=== PATIENT | female | born 1960 | race Caucasian/White ===

== ENCOUNTER 2020-11-13 14:21 | Inpatient (IN) | payer OTHER, SELFPAY ==
[~2020-11-13] VITALS: Ht 165.1 cm; Wt 82.8 kg
[2020-11-13 15:34] VITALS: Ht 165.1 cm; Wt 82.8 kg
--- NOTE | 2020-11-13 15:38 | NUR ---
PT BIB [facility] TO ED WITH C/O COCCYX PAIN FOR 3 DAYS. PER MEDICS, PT WAS POSITIVE ORTHOSTATIC ON SEEN. PT WAS SEEN WAITING IN ER HALLWAY ,THEN BEGAN VOMITING ON THE FLOOR. PT A&XO4,WHEELCHAIRED TO TENT FOR POSSIBLE COVID. PER MEDICS, PT WAS POSITIVE COVID EARLIER THIS MONTH.
--- NOTE | 2020-11-13 17:32 | NUR ---
MD PISANO AT CHAIRSIDE
--- NOTE | 2020-11-13 17:50 | NUR ---
LAB AT CHAIRSIDE
[2020-11-13 18:37] LABS: RED CELL DISTRIBUTION WIDTH 12.5 % (12.3-17.7)
--- NOTE | 2020-11-13 18:54 | NUR ---
PT WITH TECH FOR EKG, NO SOB,NO DISTRESS
[2020-11-13 18:57] LABS: PLATELET COUNT 431 x10^3mcL (179-408)
[2020-11-13 19:06] LABS: BAND NEUTROPHIL 2 % (0-10); BASOPHIL 0 % (0-2); MONOCYTE 8 % (0-7); SEGMENTED NEUTROPHILS 87 % (37-75)
[2020-11-13 19:07] LABS: rbc morphology (normal/abnorm) NORMAL (NORMAL)
--- NOTE | 2020-11-13 19:52 | NUR ---
FIRST ENCOUNTER WITH PATIENT. PRESENTED TO ED WITH C/C OF DIZZINESS AND COCCYX PAIN 10/. PT REPORTS SHE STARTED FEELING SWELLING AND PAIN IN COCCYX X3DAYS AGO BUT DID NOT PHYSICALLY SEE THE ABSCESS UNTIL TODAY. PT IS A&OX4 WITH E/U BREATHS. PT NOTED WITH LARGE ABSCESS WITH ESCHAR TISSUE ON LEFT INNER BUTTOCKS.
[2020-11-13 20:03] LABS: T3 TOTAL 0.5 ng/mL
[2020-11-13 20:11] LABS: FREE T4 1.47 ng/dL (0.76-1.46); FREE THYROXINE INDEX 3.2 ug/dL (1.4-4.5); T4(THYROXINE) 8.3 ug/dL (4.7-13.3)
[2020-11-13 20:23] LABS: ALKALINE PHOSPHATASE 129 U/L (46-116); ALT/SGPT 11 U/L (14-59); AST/SGOT 16 U/L (15-37); BILIRUBIN TOTAL 0.6 mg/dL (0.20-1.00); CALCIUM 9.6 mg/dL (8.5-10.1); CARBON DIOXIDE 14.9 mmol/L (21-32); CHLORIDE SERUM 95 mmol/L (98-107); CREATININE SERUM 0.8 mg/dL (0.6-1.0); GFR1 > 60 mL/min; GLUCOSE SERUM 339 mg/dL (74-106); SODIUM SERUM 135 mmol/L (136-145); TOTAL PROTEIN, SERUM 7.6 g/dL (6.4-8.2)
[2020-11-13 20:31] LABS: ALBUMIN 2.5 g/dL (3.4-5.0); POTASSIUM SERUM 2.7 mmol/L (3.5-5.1)
--- NOTE | 2020-11-13 21:43 | NUR ---
PT A&OX4, MEDICATED WITH 2ND ABX. PT TOLERATING WELL. PT REQUESTED ICE CHIPS AND STATED SHE FEELS NAUSEA. WILL NOTIFY .
--- NOTE | 2020-11-13 21:57 | NUR ---
PT STATES SHE IS UNABLE TO PROVIDE URINE SAMPLE AT THIS TIME. WILL CONTINUE TO ENCOURAGE PATIENT TO PROVIDE URINE SAMPLE.
[2020-11-13 22:21] LABS: CK-MB 1.3 ng/mL (0-3.6)
--- NOTE | 2020-11-13 22:52 | NUR ---
PT A&OX4 WITH E/U BREATHS, NO ACD NOTED. PT REPORTS [address] PISANO AWARE. AWAITING ORDERS.
--- NOTE | 2020-11-13 23:13 | NUR ---
PT REPORTS UNABLE TO PROVIDE URINE SAMPLE AT THIS TIME. WILL CONTINUE TO ENCOURAGE PATIENT TO ATTEMPT TO GIVE SAMPLE. MEDICATED PT PER MD ORDER WITH MORPHINE FOR 10/10 PAIN. PT'S ABX STILL RUNNING. ONCE COMPLETE WILL ADMINISTER POTASSIUM VIA IV, SEE EMAR FOR ORDER PENDING.
--- NOTE | 2020-11-14 01:30 | NUR ---
PROVIDED PT WITH ICE CHIPS PER RESIDENT'S REQUEST. ADVISED PT SHE IS NPO BUT COULD HAVE ICE CHIPS PER RESIDENT'S APPROVAL.
[2020-11-14] MEDS ORDERED: FORTAMET500 M1 (02:30)
--- NOTE | 2020-11-14 03:00 | NUR ---
PT A&OX4 WITH E/U BREATHS, PT REPORTS PAIN IS BETTER. PT RESTING IN HIGH FOWLERS POC.
[2020-11-14 03:14] LABS: MAGNESIUM 2.1 mg/dL (1.8-2.4); PHOSPHOROUS 2.9 mg/dL (2.5-4.9)
[2020-11-14 03:15] LABS: CHOLESTEROL/HDL RATIO 9.1
--- NOTE | 2020-11-14 04:13 | NUR ---
PT A&OX4 WITH E/U BREATHS, NO ACD NOTED. PT PROVIDED BEDSIDE COMMODE.
--- NOTE | 2020-11-14 05:33 | NUR ---
PT A&OX4 WITH E/U BREATHS, NO ACD NOTED. REPORT GIVEN TO COMFORT BUSCH IN OR.
[2020-11-14 07:05] LABS: UA SPECIFIC GRAVITY 1.015 (1.005-1.035); microscopic required? YES; urine erythrocyte 3+ (NEGATIVE)
--- NOTE | 2020-11-14 10:35 | NUR ---
ARRIVED VIA GURNEY FROM OR AT 0855. TELE # 67 SR. IV SITE RIGHT HAND PATENT, CDI. COOPERATIVE. DRESSING TO BUTTOCKS CDI. INSERTED [address] JEFFREY ORDER. LUNGS CTA. BS'S ACTIVE TIMES 4. PERIPHERAL PULSES PALPABLE. NO EDEMA. AAO TIMES 4. NO SOB. VS'S STABLE.
[2020-11-14 10:46] VITALS: BP 108/63
[2020-11-14 11:56] LABS: BASOPHIL % 0.2 % (0.2-1.3); PLATELET COUNT 343 x10^3mcL (179-408); RED CELL DISTRIBUTION WIDTH 12.7 % (12.3-17.7)
[2020-11-14 12:06] VITALS: BP 98/54
[2020-11-14 12:09] LABS: ALKALINE PHOSPHATASE 117 U/L (46-116); ALT/SGPT 14 U/L (14-59); AST/SGOT 19 U/L (15-37); BILIRUBIN TOTAL 0.4 mg/dL (0.20-1.00); CALCIUM 8.1 mg/dL (8.5-10.1); CARBON DIOXIDE 16.7 mmol/L (21-32); CHLORIDE SERUM 102 mmol/L (98-107); CREATININE SERUM 0.7 mg/dL (0.6-1.0); GFR1 > 60 mL/min; GLUCOSE SERUM 309 mg/dL (74-106); SODIUM SERUM 140 mmol/L (136-145)
[2020-11-14 12:23] LABS: POTASSIUM SERUM 2.5 mmol/L (3.5-5.1); TOTAL PROTEIN, SERUM 5.5 g/dL (6.4-8.2)
[2020-11-14 17:23] VITALS: BP 93/60
--- NOTE | 2020-11-14 17:56 | NUR ---
AAO TIMES 4. TELE # 67 SR. VS'S STABLE. IV SITE RIGHT HAND PATENT, CDI. NO C/O PAIN. COOPERATIVE. O2 2L NC. NO SOB. RUTH CATH DRAINED 1100 ML RENATA URINE TO BSD. DRESSING TO NARAYAN AREA CDI. [facility]OUND CARE NURSE WAS NOTIFIED OF CONSULT.
--- NOTE | 2020-11-14 20:00 | NUR ---
PATIENT AWAKE, ALERT, ORIENTED X4. AMERICAN SPEAKING. RESPIRATION EVEN AND UNLABORED, ON O2 2L PER NASAL CANNULA. IV SITE TO R WRIST AND L ANTECUBITAL AREA PATENT AND INTACT. COMPLAINED OF NAUSEA. POOR APPETITE. LBM 12/9. RUTH CATHETER TO GRAVITY DRAINING YELLOW COLORED URINE. GENERALIZED WEAKNESS, NEEDS ASSISTANCE WITH ADL'S. WOUND TO L PERINEAL/LABIA/GLUTEAL AREA COVERED WITH DRY AND INTACT DRESSING. ON TELE #67. PLACED CALL LIGHT WITHIN REACH. WILL CONTINUE TO MONITOR.
--- NOTE | 2020-11-14 21:28 | NUR ---
PATIENT COMPLAINED OF PAIN THE R HIP, 08/03. MEDICATED WITH TORADOL 30 MG IVP ORDERED. WILL REASSESS PATIENT.
[2020-11-14 21:51] VITALS: BP 97/62
--- NOTE | 2020-11-15 03:49 | NUR ---
PATIENT COMPLAINED OF NAUSEA, MEDICATED WITH ZOFRAN 4 MG IVP ORDERED. WILL REASSESS PATIENT.
--- NOTE | 2020-11-15 04:05 | NUR ---
PATIENT COMPLAINED OF PAIN ON THE R HIP, MEDICATED IWTH TORADOL 30 MG IVP ORDERED. WILL REASSESS PATIENT.
[2020-11-15 06:18] VITALS: BP 132/79
--- NOTE | 2020-11-15 06:30 | NUR ---
PATIENT RESTING IN BED, RESPIRATION EVEN AND UNLABORED, ON O2 4L PER NASAL CANNULA. NEW IV SITE ON THE R FOREARM PATENT AND INTACT. RUTH CATHETER PATENT AND INTACT. DRESSING TO R HIP WOUND DRY AND INTACT. ASSISTED WITH NEEDS. SAFETY OBSERVED. PLACED BED IN THE LOWEST POSITION. PLACED CALL LIGHT WITHIN REACH AT ALL TIMES.
[2020-11-15 08:02] LABS: PLATELET COUNT 329 x10^3mcL (179-408); RED CELL DISTRIBUTION WIDTH 12.7 % (12.3-17.7)
--- NOTE | 2020-11-15 08:41 | NUR ---
AAO TIMES 4. TELE # 67 SR. LUNGS CTA BUL, DIMINISHED BASES. O2 SAT ON RA 98%. BS'S ACTIVE TIMES 4. ALANIS WITH GENERALIZED WEAKNESS. IV SITE LFA CDI. COOPERATIVE. NO C/O PAIN. C/O NAUSEA, STATES THE MEDICATION FOR N/V DOESNT WORK. I WILL PERSUE AND A DIFFERENT N/V MEDICINE? PERIPHERAL PULSES PALPABLE, NO EDEMA.
[2020-11-15 08:50] VITALS: BP 110/60
[2020-11-15 09:15] LABS: CALCIUM 8.7 mg/dL (8.5-10.1); CARBON DIOXIDE 23.5 mmol/L (21-32); CHLORIDE SERUM 103 mmol/L (98-107); CREATININE SERUM 0.9 mg/dL (0.6-1.0); GFR1 > 60 mL/min; GLUCOSE SERUM 180 mg/dL (74-106); MAGNESIUM 1.7 mg/dL (1.8-2.4); PHOSPHOROUS 1.4 mg/dL (2.5-4.9); SODIUM SERUM 139 mmol/L (136-145)
[2020-11-15 09:41] LABS: SEGMENTED NEUTROPHILS 90 % (37-75)
[2020-11-15 09:42] LABS: MONOCYTE 6 % (0-7); rbc morphology (normal/abnorm) NORMAL (NORMAL)
[2020-11-15 09:54] LABS: POTASSIUM SERUM 2.6 mmol/L (3.5-5.1)
--- NOTE | 2020-11-15 10:30 | NUR ---
PATIENT STATES SHE HAS BEEN N/V ALL NIGHT AND THIS AM, AND THAT THE MEDICINE WE GIVE HER DOESNT WORK. I CALLED DR PETER AND SHE ORDERED PHENERGAN, I GAVE PHENERGAN 12.5 DILUTED IN 10M CC NS AT 1045. SHE HAS STOPPED VOMITING AND IS NOW SLEEPING, BUT AROUSABLE.
[2020-11-15 12:39] VITALS: BP 125/67
[2020-11-15 14:51] LABS: CALCIUM 8.5 mg/dL (8.5-10.1); CARBON DIOXIDE 23.6 mmol/L (21-32); CREATININE SERUM 1.5 mg/dL (0.6-1.0); POTASSIUM SERUM 3.1 mmol/L (3.5-5.1)
--- NOTE | 2020-11-15 16:02 | NUR ---
REMOVED ABD PAD FROM BUTTOCKS, I LEFT PACKING IN THE LEFT BUTTOCK SURGICAL WOUND, I APPLIED NEW ABD PAD TO HER BUTTOCKS WITH ADHESIVE ISLAND DRESSING BORDER.
[2020-11-15 17:42] VITALS: BP 117/62
--- NOTE | 2020-11-15 18:00 | NUR ---
VANCO TROUGH WAS 16.1. I NOTIFIED PHARMACY THIS IS HIGH. I DID NOT GIVE A DOSE TODAY BECAUSE THE PRIORITY WENT TO THE K RIDER WITH A SERUM POTASSIUM LEVEL OF 2.6, AND THE VARIOUS OTHER ANTIBITIOICS. THE PHARMACIST WAS NOTIFED AND SHE SAID SHE WOULD RESCHEDULE IT AND POSSIBLY CHANGE THE DOSE.
--- NOTE | 2020-11-15 18:50 | NUR ---
AAO TIMES 4. TELE # 67 SR. VS'S STABLE. DRESSING TO BUTTOCK CDI. NO C/O PAIN. RUTH CATH DRAINING RENATA URINE TO BSD. IV SITE LFA CDI. COOPERATIVE.
--- NOTE | 2020-11-15 19:11 | NUR ---
I NOTIFIED DR ORDONEZ SAYED THAT PATIENT'S URINE OUTPUT IS 250 TODAY, YESTERDAY IT WAS AROUND 1200. I ALSO TOLD HIM ABOUT THE VANCO TROUGH OF 16.1, THAT THE VANCO WAS HELD DUE TO K RIDER INFUSING AND I NOTIFIED PHARMACIST. THE PHARMACIST STATES SHE WILL REDUCE THE NEXT DOSE AND FOR ME TO SKIP THE DOSE DUE AT 1130. DR ORDONEZ SAYED SAID TO HAVE HER BLADDER SCANNED. I WILL NOTIFY [employer] ROBOTICIST NURSE EDITH.
[2020-11-15 21:22] VITALS: BP 129/80
--- NOTE | 2020-11-16 00:31 | NUR ---
RECEIVED PATIENT IN BED. AWAKE,ALERT, AND ORIENTED.SKIN WARM AND DRY TO TOUCH.SKIN WARM AND DRY TO TOUCH.RESPIRATION EVEN AND UNLABORED,NO RESPIRATORY DISTRESS.ON NSR TELE #64 .F/C PATENT AND DRAINING YELLOW COLORED URINE,NO HEMATURIA,NO DYSURIA.HAD EPISODES OF FEELING NAUSEATED .ENCOURAGED TO CALL FOR ASSISTANCE NEEDED.CALL LIGHT WITHIN REACH.KEPT COMFORTABLE.
--- NOTE | 2020-11-16 00:36 | NUR ---
BLADDER SCAN DONE OBTAINED 138 ML.ABDOMEN SOFT AND NONDISTENDED.BOWEL SOUND PRESENT IN ALL FOUR QUADRANT.F/C PATENT AND DRAINING YELLOW COLOR URINE TO BSD,NO HEMATURIA ,NO DYSURIA. CALL LIGHT WITHIN REACH.DENES PAIN AND DISCOMFORT AT THIS TIME.
[2020-11-16 05:47] VITALS: BP 137/85
--- NOTE | 2020-11-16 07:30 | NUR ---
RECEIVED REPORT FROM NIGHT NURSE. PATIENT RESTING IN BED, AAO TIMES 4. RESPIRATIONS EVEN AND UL ON RA. NO C/O PAIN OR DISCOMFORT. DRESSING TO L GLUTEAL CDI. BED IN LOWEST POSITION, CALL LIGHT IN REACH, SAFETY MEASURES IN PLACE.
[2020-11-16 08:28] LABS: PLATELET COUNT 265 x10^3mcL (179-408); RED CELL DISTRIBUTION WIDTH 13.2 % (12.3-17.7)
[2020-11-16 08:56] LABS: CALCIUM 8.3 mg/dL (8.5-10.1); CARBON DIOXIDE 21.2 mmol/L (21-32); CREATININE SERUM 2.2 mg/dL (0.6-1.0)
[2020-11-16 09:00] VITALS: BP 150/85
[2020-11-16 12:37] VITALS: BP 137/77
--- NOTE | 2020-11-16 15:35 | NUR ---
Initial Nutrition Assessment: MARY BURNS 60F Nursing trigger: N/V/D > 3 days, poor PO > 3 days Dx: severe sepsis, Right buttock abscess, hypokalemia PMHx: DMT2 PSHx: none noted Labs: (11/15) WBC 27.6H, H/H 10.8/32L, K 3.1L, Cr 1.5H, BG 199H, Phos 1.4L, Mg 1.7L, (11/14) Alk ph 117H, Ammonia < 10L, Albumin 2L, (11/13) A1C 10.3H, Trig 179H, LDL 101H, HDL 18L, Lipase 69L Meds: Humulin, Phenergan, Cleocin, Zosyn, sodium, vancocin, Colace, Toradol, Zofran Diet: [facility] PO intake since admission: 0-25% x 5 meals with average PO intake of 12% Ht: 165.1cm/65in Wt: 82.752kg/182.1lbs BMI: 30.4kg/m2 Bed scale: not able to assess IBW: 56.82kg/125lbs %IBW: 145.6% ABW: 63kg UBW: not able to assess Age: 60 Food Allergies: not able to assess Edema: none noted Last BM: 11/12 Skin: s/p debridement of LT. Gluteal necrotizing fasciitis Edd: 16 Per H and P (11/13), This is a 60 y/o F with recently Dx DM T2 presented to the ED with a buttock pain for 4 days. She states that everything started 4 days ago, initially was just a mild pain, gradually got worse and yesterday she noticed bloody discharge. Also, she reports diarrhea and vomiting for 2-3 days, NB/NB. Otherwise she denies fever, chills, cough, SOB, abdominal or chest pain. She tested COvid positive 3 weeks ago, but got discharged from the ED. Patient has been Dx with DM 3 weeks ago and priscribed Metformin 500mg BID. She is ambulatory at the baseline, no home 02 use. Pt was admitted with dx: Severe sepsis, DMOOC, thrombocytosis, hyponatremia, Severe PCM, Hypertriglyceridemia, DVT RD Note (11/16/2020) Pt was in isolation. RD was able to reach pt via phone, but pt said that she would like to not participate in assessment at the moment. Spoke with pt's RN. Per RN, pt had episodes of nausea and emesis today and Phenergan was given. Pt had poor appetite d/t nausea and vomiting, and pt did not have c/o chewing/swallowing troubles. Additionally, RN reported that pt refused potassium today and pt stated that it made her feel nauseated. Problem with: N/V/D/C: nausea and vomiting Problems with: Chewing: Swallowing: none per RN Current appetite: poor d/t N/V Recent wt change: not able to assess %wt change: not able to assess Vitamin/Supplement use: not able to assess Special diet at home: not able to assess Physical activity: not able to assess Nutrition education given (specify specific nutrition education and handout given): not provided at this time d/t pt in isolation and would not participate in assessment. Food-drug interactions? Education given? n/a Estimated Nutritional Needs Based on adjusted body weight (63kg) Energy: 1288-7035 kcal/day (30-35 kcal/kg for sepsis and wound healing) Protein: 78-94 g/day (1.25-1.5 g/kg for sepsis and wound healing) Fluid: 1665-2835 mL/day (1 mL/kcal) Nutrition Diagnosis: 1. Increased energy and protein needs r/t critical illness and skin integrity a/e/b pt has sepsis and wound to buttock. 2. Inadequate energy and protein intake r/t nausea and vomiting induced poor appetite a/e/b average PO intake of 12% since admission. Intervention 1. Continue with CCHO diet as tolerate 2. Recommend Glucerna TID for additional 660kcal and 30g protein. 3. Monitor pt's tolerance and acceptance of ONS and implement Nicolas BID if pt is willing to take supplement. Monitor/Evaluate Goal: PO intake at least 75% of estimated needs Monitor: PO intake, Labs, GI function, skin integrity F/U in 2-3 days as high risk 11/18-
[2020-11-16 15:39] LABS: BAND NEUTROPHIL 2 % (0-10); SEGMENTED NEUTROPHILS 85 % (37-75)
[2020-11-16 15:40] LABS: rbc morphology (normal/abnorm) NORMAL (NORMAL)
[2020-11-16 16:25] VITALS: BP 134/77
--- NOTE | 2020-11-16 19:30 | NUR ---
PATIENT RESTING IN BED, RESPIRATIONS EVEN AND UL ON RA. NO C/O PAIN OR DISOCMFORT. NO ACUTE CHANGES THROUGHOUT SHIFT. BED IN LOWEST POSITION, CALL LIGHT IN REACH, SAFETY MEASURES IN PLACE. REPORT GIVEN TO PM NURSE.
--- NOTE | 2020-11-16 19:45 | NUR ---
RECEIVED PT FROM AM NURSE. AAOX4, GUAMANIAN SPEAKING. NO FACIAL DISTRESS OR SOB NOTED. PT DENIES PAIN OR DISCOMFORT AT PRESENT. WILL CONT TO MONITOR FOR CHANGES. RESP REG NON-LABORED.
[2020-11-16 20:50] VITALS: BP 140/82
--- NOTE | 2020-11-16 23:50 | NUR ---
PATIENT RESTING QUIELY NO S/S OF RESP DISTRESS NOTED. MED PASS COMPLETE.
--- NOTE | 2020-11-17 01:00 | NUR ---
RUTH CATH REMOVED.
--- NOTE | 2020-11-17 04:00 | NUR ---
AM CARE DONE WITH EMBER ARGUETA, PATIENT TOLERATED WELL. ON ROUNDS PATIENT ASLEEP, W/ NO APARENT DISTRESS.
[2020-11-17 06:04] VITALS: BP 126/72
--- NOTE | 2020-11-17 07:15 | NUR ---
REPORT TO AM RN. PT W/ N/V THIS AM. ZOFRM GIVEN, W POSITIVE RELIEF.AT PRESENT PATIENT IS VALE AND AWAITING U/S PROCEDURE.NO S/S OF RESP DISTRESS.
--- NOTE | 2020-11-17 07:40 | NUR ---
RECEIVED PT FROM PM NURSE. PT IS AWAKE AND RESTING COMFORTABLY AT THIS TIME. NO FACIAL DISTRESS OR SOB NOTED. PT IS A/OX4. ALBANIAN SPEAKING. ABLE TO MAKE NEEDS KNOWN. DENIES PALMER/DIZZINESS. LUNG SOUNDS CTA. BREATHING E/U ON RA. TELE #67. DENIES CHEST PAIN OR PALPITATIONS. PULSES EVEN AND PALPABLE. EDEMA NOTED TO BILATERAL UPPER AND LOWER EXTREMETIES. ACTIVE BSX4. ABD SOFT AND NON DISTENDED. DENIES N/V/D. VOIDS FREELY. AMBULATORY BASELINE. DRESSING IN PLACE TO LEFT GLUTEAL REGION. CDI. NO C/O PAIN AT THIS TIME. IV TO LFA CURRENTLY INFUSING 0.9%NS AT 100 CC/HR. BED AT LOWEST POSITION. CALL BUTTON WITHIN REACH. WILL CONTINUE TO MONITOR.
[2020-11-17 08:59] VITALS: BP 139/73
[2020-11-17 12:18] VITALS: BP 132/75
[2020-11-17 14:22] LABS: PLATELET COUNT 214 x10^3mcL (179-408); RED CELL DISTRIBUTION WIDTH 13.5 % (12.3-17.7)
[2020-11-17 15:00] LABS: PLATELET COUNT 217 x10^3mcL (179-408); RED CELL DISTRIBUTION WIDTH 13.2 % (12.3-17.7)
[2020-11-17 16:35] VITALS: BP 141/74
--- NOTE | 2020-11-17 16:46 | NUR ---
PT HAS BEEN NPO FOR THE IMPENDING PROCEDURE. NUCLEAR TECH AT BEDSIDE PERFORMING NM HIDA SCAN OF THE GALL BLADDER AT THIS TIME.
[2020-11-17 17:21] LABS: BAND NEUTROPHIL 1 % (0-10); BASOPHIL 0 % (0-2); MONOCYTE 2 % (0-7); SEGMENTED NEUTROPHILS 89 % (37-75); rbc morphology (normal/abnorm) NORMAL (NORMAL)
[2020-11-17 18:01] LABS: BAND NEUTROPHIL 1 % (0-10); MONOCYTE 2 % (0-7); SEGMENTED NEUTROPHILS 89 % (37-75); rbc morphology (normal/abnorm) NORMAL (NORMAL)
--- NOTE | 2020-11-17 19:03 | NUR ---
DRESSING CHANGED PER ORDER. GOOD PERICARE RENDERED. NO ACUTE DISTRESS NOTED DURING SHIFT. SON SOFIE UPDATED ON PT'S STATUS. WILL ENDORSE CARE TO PM SHIFT FOR CONTINUITY OF CARE.
--- NOTE | 2020-11-17 19:45 | NUR ---
RECEIVED PT FROM [facility] NURSE. PT IS AAOX4, MALAY SPEAKING, DENIES HEADACHE/NAUSEA/DIZZINESS. PT IS TELE #67, SR, DENIES CHEST PAIN. PULSES ARE EQUAL BILATERALLY, EDEMA NOTED TO BUE/BLE +1. PT IS CTA, ON RA, DENIES SOB. ABDOMEN IS SOFT AND ROUND, NO PAIN UPON PALPATION. NORMOACTIVE X 4 QUADRANTS, LAST BM 11/17 DIARRHEA. PT IS INCONTINENT FOR DIARRHEA, ABLE TO USE BEDPAN FOR VOIDING. PT DEMONSTRATES GENERALZIED WEAKNESS, ABLE TO ASSIST WITH REPOSITIONING, UNABLE TO AMBULATE AT THIS TIME. OPEN WOUND TO LEFT BUTTOCKS, DRESSING IN PLACE, CDI. PATIENT COMPLAINTS OF INTERMITTENT PAIN TO LEFT BUTTOCKS WOUND, PAIN PRN MEDICATION AND REPOSITIONING HELP DECREASE THE PAIN PER PATIENT. IV TO LFA, NS WITH KCL AT 150ML/HR RUNNING AT THIS TIME. PT IS CALM AND COOPERATIVE. ALL SAFETY MEASURES IN PLACE. BED IN LOWEST POSITION, CALL LIGHT WITHIN EACH. WILL CONTINUE TO MONITOR.
[2020-11-17 20:53] VITALS: BP 143/85
[2020-11-17 21:50] LABS: CALCIUM 8.1 mg/dL (8.5-10.1); CARBON DIOXIDE 17.8 mmol/L (21-32); CREATININE SERUM 2.8 mg/dL (0.6-1.0); POTASSIUM SERUM 3.3 mmol/L (3.5-5.1)
--- NOTE | 2020-11-17 21:56 | NUR ---
NOTIFIED BY BLOOD BANK OF CANCELLED TYPE AND SCREEN ORDER. RE-ORDERED TYPE AND SCREEN ORDER UNDER NURSING PROTOCOL. ALL QUESTIONS/CONCERNS ADDRESSED AT THIS TIME.
--- NOTE | 2020-11-17 23:55 | NUR ---
CHANGED PATIENT'S WOUND DRESSING. PATIENT HAD INCONTINENT DIARRHEA EPISODE, DRESSING WAS SOILED WELL BEDDING. PATIENT MEDICATED WITH TORADOL PRN, EXPRESSES PAIN FROM WOUND. ALL SAFETY MEASURES IN PLACE. BED IN LOWEST POSITION, CALL LIGHT WITHIN REACH. WILL CONTINUE TO MONITOR.
[2020-11-18 05:51] VITALS: BP 123/75
--- NOTE | 2020-11-18 06:58 | NUR ---
PATIENT RESTED INTERMITTENTLY WITH EYES CLOSED. PATIENT IS AAOX4, BANGLADESHI SPEAKING, DENIES HEADACHE/NAUSEA/DIZZINESS. PATIENT CHANGED ONCE THROUGHOUT THE SHIFT. MEDICATED WITH TORADOL PRN DURING MORNING MED PASS, COMPLAINT OF BACK PAIN. PATIENT NOW COMMUNICATING SHE FEELS INFLAMMATION IN THE STOMACH, WILL ENDORSE TO DAYSHIFT NURSE. ALL SAFETY MEASURES IN PLACE, BED IN LOWEST POSITION, CALL LIGHT WITHIN REACH. WILL ENDORSE TO DAYSHIFT NURSE.
--- NOTE | 2020-11-18 07:16 | NUR ---
ENDORSED CARE TO DAYSHIFT NURSE. ALL QUESTIONS/CONCERNS ADDRESSED.
[2020-11-18 07:46] LABS: BASOPHIL % 0.2 % (0.2-1.3); PLATELET COUNT 210 x10^3mcL (179-408); RED CELL DISTRIBUTION WIDTH 13.1 % (12.3-17.7)
[2020-11-18 07:48] LABS: BILIRUBIN TOTAL 0.4 mg/dL (0.20-1.00); CALCIUM 7.6 mg/dL (8.5-10.1); CARBON DIOXIDE 20.5 mmol/L (21-32); CREATININE SERUM 2.6 mg/dL (0.6-1.0); POTASSIUM SERUM 3.6 mmol/L (3.5-5.1)
--- NOTE | 2020-11-18 07:48 | NUR ---
RECEIVED PT FROM PM NURSE. PT IS AWAKE AND RESTING COMFORTABLY AT THIS TIME. NO FACIAL DISTRESS OR SOB NOTED. PT IS A/OX4. MONEGASQUE SPEAKING. ABLE TO MAKE NEEDS KNOWN. DENIES PALMER/DIZZINESS. LUNG SOUNDS CTA. BREATHING E/U ON RA. TELE #67. DENIES CHEST PAIN OR PALPITATIONS. PULSES EVEN AND PALPABLE. EDEMA +1 NOTED TO BUE AND BLE. ACTIVE BSX4. ABD SOFT AND ROUND. REPORTS HAVING DIARRHEA EARLIER THIS MORNING. GENERALIZED WEAKNESS NOTED. OPEN WOUND NOTED TO L GLUTEAL REGION. DRESSING CDI. WILL CHANGE NEEDED. NO C/O PAIN AT THIS TIME. IV 22G TO LFA CURRENTLY INFUSING NS WITH 20MEQ KCL AT 150ML/HR. BED AT LOWEST POSITION. CALL BUTTON WITHIN REACH. WILL CONTINUE TO MONITOR.
[2020-11-18 08:19] LABS: ALBUMIN 1.6 g/dL (3.4-5.0); TOTAL PROTEIN, SERUM 5.6 g/dL (6.4-8.2)
[2020-11-18 09:22] VITALS: BP 146/80
--- NOTE | 2020-11-18 09:31 | NUR ---
PT CONTINUES TO REFUSE MORNING COLACE AND SENNA. EDUCATED PT ABOUT THE IMPORTANCE OF TAKING THESE MEDICATIONS D/T PT BEING CONSTIPATED. STILL REFUSED. MADE DR GOLDSMITH AWARE OF PATIENT REFUSING THESE MEDICATIONS. WILL CONTINUE TO MONITOR.
--- NOTE | 2020-11-18 10:00 | NUR ---
MADE DR GOLDSMITH AWARE OF PATIENT STATING THAT SHE FEELS BLOATED AND FULLNESS IN HER STOMACH. DR GOLDSMITH WILL ORDER AN ABD XRAY KUB.
--- NOTE | 2020-11-18 12:30 | NUR ---
PREMEDICATED PT WITH TORADOL BEFORE WOUND DRESSING CHANGED. DRESSING CHANGED PER WOUND ORDER. PT TOLERATED PROCEDURE WELL.
[2020-11-18 12:31] LABS: CALCIUM 7.6 mg/dL (8.5-10.1); CREATININE SERUM 2.8 mg/dL (0.6-1.0); POTASSIUM SERUM 3.7 mmol/L (3.5-5.1)
[2020-11-18 13:11] VITALS: BP 134/72
[2020-11-18 16:43] VITALS: BP 154/90
--- NOTE | 2020-11-18 20:00 | NUR ---
RECEIVED PT AA&O. RECEIVING IV FLUIDS PER ORDERS. PT IS VERY EDEMATOUS BILATERAL EXTREMITIES. PT HAVING SOFT/LOOSE STOOL. WOUND TO BUTTOCKS IS VERY OPEN AND LARGE. STOOL GETS INTO WOUND VERY EASILY. FLUSHED OUT A GREAT DEAL. PT UNABLE TO GET UP AND IS INCONTINENT OF BOWELS AND BLADDER. ENDS UP SITTING IN SOILED LINENS AND CHUX OFTEN. C/O PAIN 9-10/10 TO BUTTOCKS. AFTER CLEANSING WOUND PLACED NEW WET TO DRY DRESSING. TISSUE AROUND EDGES IS BROWN IN SPOTS AND PURULENT. SERASANGUINEOUS DRAINAGE. PAIN MEDS TO BE ADMINISTERED PER ORDERS.
[2020-11-18 21:39] VITALS: BP 140/67
--- NOTE | 2020-11-19 07:00 | NUR ---
CHANGED DRESSING AND CHUX WELL CLEANING PT UP 3-4 TIMES DURING SHIFT. PAIN MANANGEMENT GIVEN THROUGHOUT SHIFT. PILLOWS PLACED BEIND BACK AND UNDER FEET. NEW IV PLACED TO RIGHT FA AND REMOVED LEFT FA IV DUE TO INFILTRATION. PAGED REGARDING FLUIDS AND PT BEING SO EDEMATOUS WELL POSSIBLE ORDER FOR RUTH. AWAITING RETURN PHONE CALL ALL NIGHT
--- NOTE | 2020-11-19 07:36 | NUR ---
RECEIVED PT FROM PM NURSE. PT IS AWAKE AND IN NO ACUTE DISTRESS AT THIS TIME. PT IS A/OX4. ABLE TO MAKE NEEDS KNOWN. DENIES PALMER/DIZZINESS. LUNG SOUNDS CTA. BREATHING E/U ON RA. TELE #67. DENIES CHEST PAIN OR PALPITATIONS. PULSES EVEN AND PALPABLE. EDEMA +1 NOTED TO BUE/BLE. ACTIVE BSX4. ABD SOFT AND ROUND. REPORTS DIARRHEA THIS MORNING. PT IS INCONTINENT TO BOTH BOWEL AND BLADDER. GENERALIZED WEAKNESS NOTED. OPEN WOUND NOTED TO LEFT GLUTEAL REGION. GAUZE AND DRESSING IN PLACE. CDI. WILL CHANGE NEEDED. NO C/O PAIN AT THIS TIME. IV TO RFA CURRENTLY INFUSING NS W/ 20MEQ KCI AT 70ML/HR. BED AT LOWEST POSITION. DROPLET/CONTACT PRECAUTION MAINTAINED AT ALL TIMES. CALL BUTTON WITHIN REACH. WILL CONTINUE TO MONITOR.
[2020-11-19 08:48] VITALS: BP 148/83
--- NOTE | 2020-11-19 09:55 | NUR ---
DR GOLDSMITH MADE AWARE OF PATIENT REFUSING BOTH COLACE AND SENNA D/T HAVNIG DIARRHEA. DR GOLDSMITH SAID HE WILL CHANGE UP PATIENT'S ORDER.
--- NOTE | 2020-11-19 10:37 | NUR ---
SPOKE TO EHSAN DOUGLAS ABOUT PATIENT WANTING TO HAVE RUTH CATHETER REINSERTION D/T NOT BEING ABLE TO GET UP TO USE THE RESTROOM. EHSAN DOUGLAS AGREED TO IT AND ASKED ME TO PUT IN A TELEPHONE ORDER. NOTED AND CARRIED OUT.
[2020-11-19 12:25] VITALS: BP 156/86
[2020-11-19 16:11] VITALS: BP 149/84
[2020-11-19 17:06] LABS: PLATELET COUNT 181 x10^3mcL (179-408); RED CELL DISTRIBUTION WIDTH 12.8 % (12.3-17.7)
[2020-11-19 17:26] LABS: CALCIUM 7.4 mg/dL (8.5-10.1); CARBON DIOXIDE 18.8 mmol/L (21-32); CREATININE SERUM 2.2 mg/dL (0.6-1.0); POTASSIUM SERUM 3.6 mmol/L (3.5-5.1)
[2020-11-19 17:29] LABS: BAND NEUTROPHIL 0 % (0-10); BASOPHIL 0 % (0-2); MONOCYTE 12 % (0-7); SEGMENTED NEUTROPHILS 80 % (37-75); rbc morphology (normal/abnorm) NORMAL (NORMAL)
--- NOTE | 2020-11-19 18:27 | NUR ---
PAIN MED ADMINISTERED PRIOR TO DRESSING CHANGE. DRESSING CHANGED PER MD'S ORDER. WOUND CLEANSED WITH NS. WET TO DRY DRESSING APPLIED. PT TOLERATED PROCEDURE WELL. WILL CONTINUE TO MONITOR.
--- NOTE | 2020-11-19 18:38 | NUR ---
NO ACUTE DISTRESS NOTED DURING SHIFT. PT RESTING COMFORTABLY AT THIS TIME. WILL ENDORSE CARE TO PM SHIFT FOR CONTINUITY OF CARE.
[2020-11-19 20:49] VITALS: BP 152/79
[2020-11-20 05:36] VITALS: BP 144/75
--- NOTE | 2020-11-20 06:34 | NUR ---
AWAKE ALERT AND ORIENTED. LARGE BUTTOCK WOUND DRESSING CHANGED EVERY TIME PT HAS LOOSE STOOL. STOOL IS VERY DARK AND WATERY/LOOSE. GETS INTO WOUND BED. NO FOUL ODOR FROM WOUND BUT TISSUE AROUND WOUND IS BROWN AND FULL OF STOOL CONSTANTLY. USING SALINE FLUSHES TO FLUSH OUT WOUND And wet to dry dressing per orders. PT C/O PAIN 08/03 TO BUTTOCKS, HARD FOR HER TO TURN DUE TO PAIN. NEEDS MORE DIABETIC EUCATION IN MEXICAN. IV TO R FA PATENT AND INFUSING. BILAT EXTREMITIES CONTINUES TO BE EDEMATOUS BUT LESS EDEMATOUS THAN YESTERDAY. FLUIDS DECREASED. O RESPIRATORY DISTRESS NOTED.
--- NOTE | 2020-11-20 07:15 | NUR ---
RECEIVED REPORT FROM [employer]RAKE LINING FINISHER HELPER RN. PT IN BED AWAKE, ALERT, ABLE TO VERBALIZE NEEDS. ON DROPLET PRECAUTION FOR COVID19, ON ROOM AIR 97%02SAT, NO ACUTE RESPIRATORY DISTRESS. DENIES PAIN OR DISCOMFORT AT THIS TIME. ON TELE 67. IV SITE TO RFA WITH NS AND K20MEQ AT 80CC/HR. RUTH CATH IN PLACE. BED IN LOWEST POSITION. CALL LIGHT WITHIN REACH. WILL CONTINUE TO MONITOR.
[2020-11-20 07:40] LABS: PLATELET COUNT 214 x10^3mcL (179-408); RED CELL DISTRIBUTION WIDTH 12.8 % (12.3-17.7)
[2020-11-20 07:42] LABS: C REACTIVE PROTEIN 3.5 mg/dL (<=0.9); CALCIUM 7.8 mg/dL (8.5-10.1); CARBON DIOXIDE 19.6 mmol/L (21-32); CREATININE SERUM 2.1 mg/dL (0.6-1.0); POTASSIUM SERUM 3.7 mmol/L (3.5-5.1)
[2020-11-20 08:58] VITALS: BP 143/78
[2020-11-20 09:18] VITALS: BP 151/77
[2020-11-20 09:31] LABS: MAGNESIUM 1.7 mg/dL (1.8-2.4)
[2020-11-20 11:54] VITALS: BP 137/80
[2020-11-20 17:08] VITALS: BP 137/71
--- NOTE | 2020-11-20 19:29 | NUR ---
PT IN BED AWAKE, ALERT, ABLE TO VERBALIZE NEEDS. ON DROPLET PRECAUTION FOR COVID19, ON ROOM AIR 97%02SAT, NO ACUTE RESPIRATORY DISTRESS. DENIES PAIN OR DISCOMFORT AT THIS TIME. ON TELE 67. IV SITE TO RFA SALINE LOCK AT THIS TIME. RUTH CATH IN PLACE DRAINING WITH YELLOW URINE. BED IN LOWEST POSITION. CALL LIGHT WITHIN REACH. WILL ENDORSE CARE TO INCOMING RN.
--- NOTE | 2020-11-20 20:30 | NUR ---
PATIENT IS A/O X4. CUBAN SPEAKER. ON TELE 67. NSR. DENIES CHEST PAIN AND CHEST PRESSURE. TRACE PITTING EDEMA NOTED TO BUE AND BLE. ON ROOM AIR. LUNG SOUNDS CTA. LAST BM 11/19/20. NORMOACTIVE BOWEL SOUNDS X4. DARK LOOSE. RUTH IN PLACE DRAINING YELLOW URINE. GENERALIZED WEAKNESS. ABLE TO REPOSITION SELF. LEFT BUTTOCKS OPEN WOUND. WILL CHANGE PRN D/T BOWEL MOVEMENTS. LFA 22G CDI. BED IN LOWEST AND LOCKED POSITION. CALL LIGHT WITHIN REACH. WILL CONT TO MONITOR .
[2020-11-20 21:26] LABS: BAND NEUTROPHIL 7 % (0-10); BASOPHIL 0 % (0-2); MONOCYTE 6 % (0-7); SEGMENTED NEUTROPHILS 77 % (37-75)
[2020-11-20 21:27] LABS: rbc morphology (normal/abnorm) NORMAL (NORMAL)
--- NOTE | 2020-11-20 21:45 | NUR ---
PATIENT C/O BUTTOCKS PAIN 06/02. SHE IS ALSO C/O NAUSEA. GAVE TORADOL AND ZOFRAN PRESCRIBED FOR PAIN AND NAUSEA. WILL F/U WITH EFFECTS OF MEDICATIONS.
[2020-11-20 21:47] VITALS: BP 120/81
--- NOTE | 2020-11-20 22:10 | NUR ---
CHANGED DRESSING ACCORDING TO ORDERS. PATIENT PASSED A BM. MODERATE LOOSE. PATIENT WAS IN PAIN WHEN CHANGING DRESSING BUT I ADMINISTERED THE PAIN MEDICATION BEFORE PERFORMING THE DRESSING CHANGE. WILL KEEP CHANGING PRN.
--- NOTE | 2020-11-21 00:54 | NUR ---
PATIENT STATED SHE FELT THAT HER MOUTH WAS WATERY AND NAUSEOUS. SHE INSISTED THAT I TAKE HER BLOOD SUGAR. BLOOD SUGAR WAS 105 MG/DL. PATIENT WAS RELIEVED. SHE HAS NO OTHER CONCERNS AT THIS TIME BESIDES WANTING HER PAIN MEDS AND NAUSEA MEDICATIONS THE NEXT TIME IT IS DUE. WILL F/U. PAIN IS NOW 9/10 BUTTOCKS AREA.
--- NOTE | 2020-11-21 01:00 | NUR ---
REPORTED TO NIGHT RESIDENTS VIA COAT MAKER RESIDENT ORDER SHEET OG MG OF 1.7.
[2020-11-21 06:01] VITALS: BP 132/63
--- NOTE | 2020-11-21 07:00 | NUR ---
PATIENT C/O PAIN IN BUTTOCKS 05/03. GAVE TORADOL PRESCRIBED FOR PAIN. WILL ENDORSE AM NURSE TO F/U WITH EFFECT OF MEDICATION. PATIENTS GLUCOSE LEVEL WAS 73 MG/DL. ENCOURAGED PATIENT TO DRINK APPLE JUICE. PATIENT DRANK 250 ML OF APPLE JUICE.
--- NOTE | 2020-11-21 07:05 | NUR ---
CHANGED DRESSING ACCORDING TO ORDERS. PATIENT DRESSING SOILED. PATIENT WAS IN PAIN WHEN CHANGING DRESSING BUT I ADMINISTERED THE PAIN MEDICATION BEFORE PERFORMING THE DRESSING CHANGE.
--- NOTE | 2020-11-21 07:10 | NUR ---
RECEIVED PT FROM NIGHT RN. PT [id number]. PT ON TELE #[id number]. DENIES CHEST PAIN AT THIS TIME. PT ON RA LUNGS CTAB. NO SOB AT THIS THIS TIME. IV TO RFA 22G. HEPLOCKED. CDI AND PATENT. ALL COMFORT AND SAFETY MEASURES IN PLACE. BED IN LOW POSITION, 2 SIDE RAILS UP. CALL LIGHT WITH IN REACH. ALL QUESTIONS AND CONCERNS ADDRESSED.
[2020-11-21 08:39] VITALS: BP 141/72
--- NOTE | 2020-11-21 10:11 | NUR ---
IN TO SEE PT. PT STATING SHE HAD A BM. WOUND DRESSING CHANGED PER ORDERS. DRESSING APPLIED. ALL QUESITONS AND CONCERNS ADDRESSED.
[2020-11-21 11:55] VITALS: BP 131/44
--- NOTE | 2020-11-21 13:13 | NUR ---
IN TO SEE PT. PT REMAINS STABLE AT THIS TIME W/ NO ACUTE CHANGES TO STATUS. ALL QUESTIONS AND CONCERNS ADDRESSED. PT DENIES PAIN AT THIS TIME.
--- NOTE | 2020-11-21 14:12 | NUR ---
PT TAKEN DOWN FOR CT AT THIS TIME.
--- NOTE | 2020-11-21 15:33 | NUR ---
Follow-up Nutrition Assessment: MARY BURNS 60F Dx: severe sepsis, Right buttock abscess, hypokalemia PMHx: DMT2 PSHx: none noted Labs: (11/20) WBC 20.1H, H/H 10.5/31L, BUN 21H, Cr 2.1H, Ca 7.8L, Mg 1.7L, CRP 3.5H, (11/18) albumin 1.6L, (11/15) WBC 27.6H, H/H 10.8/32L, K 3.1L, Cr 1.5H, BG 199H, Phos 1.4L, Mg 1.7L, (11/14) Alk ph 117H, Ammonia < 10L, Albumin 2L, (11/13) A1C 10.3H, Trig 179H, LDL 101H, HDL 18L, Lipase 69L Meds: Toradol, Zosyn, Zofran, Lantus, Humulin, Phenergan Diet: CCHO diet PO Intake: (11/19) B: 45%, L: 45%, *no other entries; but improved since last visit (12%) Wt: 82.752kg/182.1lbs BMI: 30.4kg/m2 Edema: BUE and BLE trace pitting 1+ Last BM: 11/20 Skin: left buttocks/gluteal open wound Edd: [address] (11/16/2020) Pt was in isolation. RD was able to reach pt via phone, but pt said that she would like to not participate in assessment at the moment. Spoke with pt's RN. Per RN, pt had episodes of nausea and emesis today and Phenergan was given. Pt had poor appetite d/t nausea and vomiting, and pt did not have c/o chewing/swallowing troubles. Additionally, RN reported that pt refused potassium today and pt stated that it made her feel nauseated. RD Note (11/21/2020): Per progress note (11/20), Pt is pending placement for SNF, and pt is also COVID positive. Pt noted to have c/o cannot keep any food down, dark loose stool, and c/o intermittent N/V per RN reassessment. Pt's PO intake slightly improved from last visit, but there were only two entries of nutrition flowsheet. Per RN, pt's PO intake is still poor d/t feeling nauseous (pt on Zofran and Phenergan) but uncertain about ONS intake. RD tried following up with pt via phone after pt's CT scan multiple times, but pt did not respond to RD. Estimated Nutritional Needs Based on adjusted body weight (63kg) Energy: 0446-8391 kcal/day (30-35 kcal/kg for sepsis and wound healing) Protein: 78-94 g/day (1.25-1.5 g/kg for sepsis and wound healing) Fluid: 5208-8881 mL/day (1 mL/kcal) Nutrition Diagnosis: 1. Increased energy and protein needs r/t critical illness and skin integrity a/e/b pt has sepsis and wound to buttock. (ongoing) 2. Inadequate energy and protein intake r/t nausea and vomiting induced poor appetite a/e/b average PO intake of 45% since last visit (ongoing) - pt's PO intake still poor per RN Intervention 1. Continue with CCHO diet as tolerate 2. Continue Glucerna TID for additional 660kcal and 30g protein. 3. Recommend MVI QD for inadequate PO intake and wound healing. Monitor/Evaluate Goal: PO intake at least 75% of estimated needs Monitor: PO intake, Labs, GI function, skin integrity F/U in 2-3 days as high risk 11/23-11/24
[2020-11-21 16:12] VITALS: BP 147/72
--- NOTE | 2020-11-21 17:10 | NUR ---
IN TO SEE PT. PT REMAINS STABLE AT THIS TIME. PT WOUND DRESSING CHANGED PER MD ORDERS. ALL QUESTIONS AND CONCERNS ADDRESSED.
--- NOTE | 2020-11-21 19:15 | NUR ---
REPORT GIVEN TO NIGHT RN. PT REMAINED STABLE THROUGHOUT MY SHIFT. ALL QUESTIONS AND CONCERNS ADDRESSED. ALL NEEDS MET AT THIS TIME. ALL CARES ENDORSED.
--- NOTE | 2020-11-21 19:40 | NUR ---
RECEIVED PT IN BED AWAKE, RESTING COMFORTABLY. A/O X 4 ABLE TO MAKE NEEDS KNOWN, ABLE TO FOLLOW COMMANDS, SPEECH IS CLR. RESP IS EVEN AND UNLABORED, LUNGS SOUNDS CLR, ON RA. ON TELE 67, NO C/O CHEST PAIN. NON PITTING EDEMA ON BUE AND BLE, RADIAL AND PEDAL PULSES PRESENT. NOTED WITH GENERALIZED WEKANESS, ABLE TO REPOSITON SELF IN BED. WOUND ON THE LEFT BUTTOCKS, DRESSING CHANGED. IV SITE TO THE RFA, PATENT AND FLUSHING WELL. BED TO LOWEST POSITION CALL LIGHT WITHIN REACH, WILL CONT TO MONITOR FOR CHANGES IN CONDITION.
[2020-11-21 20:17] LABS: PLATELET COUNT 223 x10^3mcL (179-408); RED CELL DISTRIBUTION WIDTH 12.9 % (12.3-17.7)
[2020-11-21 20:31] VITALS: BP 140/71
[2020-11-21 20:53] LABS: CALCIUM 7.7 mg/dL (8.5-10.1); CARBON DIOXIDE 21.9 mmol/L (21-32); CREATININE SERUM 2.1 mg/dL (0.6-1.0)
[2020-11-22 05:10] VITALS: BP 134/66
--- NOTE | 2020-11-22 07:30 | NUR ---
RECEIVES PATIENT FROM PLASMA SPECIALIST NURSE. PT RESTING IN BED, A/O X4, TELE#67, SR, HR 79. LUNG SOUND CTA, NO RESP DISTRESS NOTED. ON RA, O2 SAT 97%. PERIPHERAL PULSES PALPABLE. EDEMA +1 AT BUE AND BLE. BOWELS SOUND ACTIVE LAST BM 11/22. VOIDS. L BUTTOCKS/GLUTEAL OPEN WOUND COVED WITH DRY DRESSING. DENIES PAIN, HEADACHE, CHEST PAIN, NUMBNESS, N/V. IV ACCESS TO RFA 22G HL PATENT/INTACT. IN DROPLET ISO FOR CVD+. SAFETY MEASURE IN PLACE. CALL LIGHT WITHIN REACH, BED AT LOWEST POSITION.
[2020-11-22 07:35] LABS: MONOCYTE 11 % (0-7); SEGMENTED NEUTROPHILS 81 % (37-75)
[2020-11-22 07:36] LABS: rbc morphology (normal/abnorm) NORMAL (NORMAL)
--- NOTE | 2020-11-22 07:57 | NUR ---
PT REMAINED IN BED, RESTING COMFORTABLY, AWAKE. NO C/O PAIN, NO ACUTE DISTRESS NOTED. RESP IS EVEN AND UNLABORED. NEEDS ATTENDED AND MET, FREQUENT VISUAL MONITORING RENDERED. ON ABX IV NO ASE NOTED. BED TO LOWEST POSITION, CALL LIGHT WITHIN REACH, ENDORSED CARE TO NEXT SHIFT NURSE.
[2020-11-22 09:15] VITALS: BP 160/82
--- NOTE | 2020-11-22 11:30 | NUR ---
PT HAS BM TODAY, DARK LOOSE STOOL. THERE IS OPENNED WOUND WITH UNDERMINING AT BUTTOCK AND DRESSING IS SOILED AFTER PT HAS BM. WOUND CARE IS PERFORMED. KETOROLAC IVP GIVEN PRIOR WOUND CARE. PT DENIES PAIN, HEADACHE, CHEST PAIN, NUMBNESS, N/V.
--- NOTE | 2020-11-22 11:31 | NUR ---
PT HAS BM TODAY, DARK LOOSE STOOL. THERE IS OPENNED WOUND WITH UNDERLINING AT BUTTOCK AND THE WOUND SOILED AFTER PT HAS BM. WOUND CARE IS COMPLETED. TO KETOROLAC IVP GIVEN PRIOR WOUND CARE. PT DENIES PAIN, HEADACHE, CHEST PAIN, NUMBNESS, N/V.
--- NOTE | 2020-11-22 13:34 | NUR ---
CALLED AND LEFT MESSAGE FOR SUPERVISOR GLYCERIN NAVEED TO NOTIFY HER PT'S POTASSIUM LEVEL TODAY 3.0. THERE IS NO PRN MED FOR HYPOKALEMIA AT THIS TIME
--- NOTE | 2020-11-22 15:40 | NUR ---
SPOKE TO AMAIRANI AT [facility] THAT PT IS IN DROPLET ISOLATION FOR CVD+
--- NOTE | 2020-11-22 16:55 | NUR ---
PT RESTING IN BED. AWAKE, ALERT AND ORIENTED. NO ACUTE RESP DISTRESS NOTED. ON RA, O2 SAT 97%. DENIES PAIN, HEADACHE, CHEST PAIN, N/V. HL PATENT/INTACT. CALL LIGHT WITHIN REACH, BED AT LOWEST POSITION.
[2020-11-22 17:00] VITALS: BP 149/77
--- NOTE | 2020-11-22 18:53 | NUR ---
PT RESTING IN BED. AWAKE, ALERT AND ORIENTED. DENIES PAIN, HEADACHE, CHEST PAIN, N/V, DISCOMFORT AT TIMES. HL PATENT/INTACT. DRESSING ON BUTTOCK IS CLEAN AND DRY. PT REFUSED TO EAT DUE TO CONTINUE LOOSE STOOL. CALL LIGHT WITHIN REACH, BED AT LOWEST POSITION. WILL ENDORSE TO AUTO TRANSMISSION SPECIALIST NURSE
--- NOTE | 2020-11-22 19:45 | NUR ---
RECIEVED PT FROM DAY SHIFT NURSE. RR EVEN AND UNLABORED. PT ON RA O2 SAT 98% NO ADN. BED LOCKED AND LOWERED. CALL LIGHT WITHIN REACH. WILL CONTINUE WITH PLAN OF CARE.
[2020-11-22 21:04] VITALS: BP 138/68
--- NOTE | 2020-11-23 01:10 | NUR ---
PT RESTING IN BED. RR EVEN AND UNLABORED. NO ADN. DENIES PAIN. BED LOCKED AND LOWERED. CALL LIGHT WITHIN REACH. WILL CONTINUE TO MONITOR.
[2020-11-23 04:29] VITALS: BP 144/79
--- NOTE | 2020-11-23 07:38 | NUR ---
PT RESTING IN BED. RR EVEN AND UNLABORED. NO ADN. WILL ENDORSE TO ONCOMING NURSE.
[2020-11-23 08:08] VITALS: BP 150/81
[2020-11-23 08:38] LABS: BASOPHIL % 0.3 % (0.2-1.3); PLATELET COUNT 283 x10^3mcL (179-408); RED CELL DISTRIBUTION WIDTH 12.6 % (12.3-17.7)
[2020-11-23 08:46] LABS: CALCIUM 8.1 mg/dL (8.5-10.1); CARBON DIOXIDE 24.8 mmol/L (21-32); CREATININE SERUM 2.1 mg/dL (0.6-1.0); POTASSIUM SERUM 3.7 mmol/L (3.5-5.1)
--- NOTE | 2020-11-23 14:05 | NUR ---
PHYSICAL THERAPY NOTE PATIENT IS UNDERGOING WOUND DEBRIDEMENT PROCEDURE. TO FOLLOW UP FOR PHYSICAL THERAPY WHEN APPROPRIATE
[2020-11-23 16:32] VITALS: BP 140/74
--- NOTE | 2020-11-23 19:44 | NUR ---
RECEIVED PT FROM DAY SHIFT NURSE. RR EVEN AND UNLABORED. LUNG SOUNDS CTA. PT ON RA. NO ADN. DENIES PAIN. BED LOCKED AND LOWERED. CALL LIGHT WITHIN REACH. WILL CONTINUE WITH PLAN OF CARE.
[2020-11-23 20:11] VITALS: BP 126/71
[2020-11-24 05:35] VITALS: BP 127/71
--- NOTE | 2020-11-24 07:30 | NUR ---
RECIEVED REPORT FROM [facility] NURSE. PATIENT IS CURRENTLY AWAKE ALERT AND ORIENTED X 4. PATIENT IS CURRENTLY ON ISOLATION PRECAUTIONS DUE TO POSITIVE COVID 19 STATUS. PATIENT IS CURRENTLY ON ROOM AIR. OXYGEN SATURATION AT 97% ON ROOM AIR. NO REPORT OF SOB. NO SIGNS OR SYMPTOMS OF DYSPNEA. PATIENT HAS SIGNIFICANT GLUTEAL ABSCESS THAT IS CURRENTLY PACKED WITH KERLEX. ORDER FOR RECTAL TUBE PLACEMENT PLACED BY DR. COLEMAN. WILL INSERT FLEXICELE PER PHYSICIAN ORDER. PATIENT HAS NOTED 2+ BLE EDEMA, NON PITTING. SAFETY PRECAUTIONS IN PLACE. CALL LIGHT WITHIN REACH. WILL CONTINUE TO PROVIDE CARE FOR PATIENT.
[2020-11-24 08:38] VITALS: BP 152/78
[2020-11-24 12:07] VITALS: BP 141/73
[2020-11-24 12:25] LABS: CALCIUM 8.1 mg/dL (8.5-10.1); CARBON DIOXIDE 25.3 mmol/L (21-32); CREATININE SERUM 2.2 mg/dL (0.6-1.0); POTASSIUM SERUM 3.4 mmol/L (3.5-5.1)
[2020-11-24 12:32] LABS: BASOPHIL % 0.5 % (0.2-1.3); PLATELET COUNT 330 x10^3mcL (179-408); RED CELL DISTRIBUTION WIDTH 12.8 % (12.3-17.7)
--- NOTE | 2020-11-24 13:11 | NUR ---
CONTACTED BLOOD BANK REGARDING AVAILABILITY OF CONV. PLASMA. THERE IS CURRENTLY NO CONV. PLASMA AVAILABLE FOR PATIENT.
--- NOTE | 2020-11-24 13:44 | NUR ---
RECEIVED LAB RESULT WBC 19.0 FROM LAB. AND ENDORSE TO PRIMARY NURSE.
--- NOTE | 2020-11-24 13:51 | NUR ---
Follow-up Nutrition Assessment: Angella Black 254T-A Dx: Severe sepsis, right buttock abscess and hypokalemia PMHx: DM 2 Labs: (11/23) Cr:2.1H, Ca:8.1L, WBC:19.1H. H/H:9.3/28L, labs still pending for 11/24 Meds: Humulin, Lantus, Phenergen, Reglan, Na bicarb, Toradol, Tylenol, Zofran and Zosyn Diet: CCHO PO intake: (11/21) no PO intake recorded (11/22) no PO intake recorded (12/24) NPO Weights: 82.752 Edema: none Last BM:11/23 Skin: s/p devridement Edd: Per H&P 11/24, pt is s/p excisional debridement skin subcut necrotizing fasciitis to level of skin subcut fascia 11/23/2020 and s/p debridement of left labia and left gluteal on 11/14/2020. Plan is to continue IV abx, am labs and follow up with senior science consultant recommendations. RD note, per RN note, pt with good appetite. 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 Estimated Nutritional Needs Based on adjusted body weight:63kg Energy: 1890-2205kcal/day (30-35kcal/kg for sepsis and wound healing) Protein: 78-94g/day (1.2-1.5g/kg for sepsis and wound healing) Fluid: 1890-2205mL/day (1 mL/kcal) Nutrition Diagnosis: 1. Increased protein/energy needs related to critical illness and altered skin integrity as evidenced by pt with sepsis and wound to buttock (ongoing) 2. I Intervention: 1. Continue CCHO diet as tolerated. 2. Continue Glucerna TID to provide an additional 660kcal and 30g protein. Monitor/Evaluate: Goal: Consume at least 50% of estimated nutritional needs and wound healing Monitor: PO intake, Labs, GI function, Body weight, skin integrity F/U in 2-3 days as high risk:11/26-11/27
--- NOTE | 2020-11-24 13:52 | NUR ---
1. Continue CCHO diet as tolerated. 2. Continue Glucerna TID to provide an additional 660kcal and 30g protein.
[2020-11-24 16:45] VITALS: BP 158/79
--- NOTE | 2020-11-24 18:10 | NUR ---
PATIENT IS CURRENTLY ON ISOLATION PRECAUTIONS DUE TO POSITIVE COVID 19 STATUS. FLEXI-SEAL INSERTED TODAY PER PHYSICIAN ORDER. FLEXI-SEAL INTACT AND DRAINING. LEFT BUTTCOKS WOUND CURRENTLY PACKED WITH KERLEX AND DRESSING PLACED OVER WOUND, DRESSING CDI. RUTH IS CURRENTLY IN PLACE DRAINING HAZY CLOUDY YELLOW URINE TO GRAVITY. PATIENT REMAINS ON ROOM AIR AT THIS TIME. OXYGEN SATURATION AT 98% ON ROOM AIR. NO REPORT OF SOB. NO SIGNS OR SYMPTOMS OF DYSPNEA. SAFETY PRECAUTIONS CURRENTLY IN PLACE. CALL LIGHT WITHIN REACH. WILL ENDORSE ALL FURTHER CARE TO THE [facility] NURSE.
--- NOTE | 2020-11-24 19:55 | NUR ---
RECEIVED PT FROM AM NURSE, AA/O X 4, ABLE TO MAKE NEEDS KNOWN, CLEAR SPEECH, DENIES HEADACHE/ DENIES DIZZINESS. TELE MONITOR #67, NSR, DENIES CHEST PAIN/ CHEST PRESSURE. PULSES PALPABLE,+1 BUE/ BLE EDEMA. LUNG SOUNDS CTA, RESPIRATIONS E/U ON RA. DENIES SOB. ACTIVE BS X 4 QUADS, ABD SOFT AND ROUND. DENIES N/V/D AT THIS TIME. F/C INTACT DRAINING HAZY YELLOW URINE TO GRAVITY. FLEXISELE RECTAL TUBE IN PLACE, DRAINING FECES. LEFT BUTTOCKS WOUND, DRSG CDI. IV TO RFA, SL, NO ERYTHEMA/ NO INFILTRATION, FLUSHING WELL. DENIES PAIN. PT CALM AND COMPLIANT. DROPLET PRECAUTIONS IN PLACE FOR POSTIIVE COVID 19 STATUS. ALL NEEDS MET, CALL BUTTON WITHIN REACH, WILL CONTINUE TO MONITOR.
[2020-11-24 20:35] VITALS: BP 150/90
--- NOTE | 2020-11-25 01:20 | NUR ---
PT IN BED RESTING, RESPIRATIONS E/U ON RA. NO ACUTE DISTRESS AT THIS TIME. WILL CONTINUE TO MONITOR.
[2020-11-25 05:30] VITALS: BP 148/86
--- NOTE | 2020-11-25 07:01 | NUR ---
PT SLEPT IN INTERVALS THROUGHOUT THE NIGHT, BUT EASILY AROUSABLE. IRRIGATED RECTAL TUBE TWICE THIS SHIFT WILL STERILE WATER. NO ACUTE CHANGES OVERNIGHT. WILL ENDORSE CARE TO AM NURSE.
--- NOTE | 2020-11-25 08:00 | NUR ---
RECIEVED REPORT FROM [facility] NURSE. PATIENT IS CURRENTLY ON ISOLATION PRECAUTIONS DUE TO POSITIVE COVID-19 STATUS. FLEXI-SEAL IN PLACE CURRENTLY DRAINING BROWN STOOL TO GRAVITY. RUTH IN PLACE DRAINING CLOUDY URINE TO GRAVITY. GLUETEAL WOUND TO BUTTOCKS CURRENTLY PACKED WITH KERLEX, DRY AND COVERED. PATIENT IS ON ROOM AIR, NO REPORT OF SOB, PATIENT CURRENTLY OBSERVED RESTING IN BED. RESPIRATIONS EQUAL AND UNLABORED WITH SYMMETRICAL CHEST RISE AND FALL. SAFETY PRECAUTIONS IN PLACE. CALL LIGHT WITHIN REACH. WILL CONTINUE TO PROVIDE CARE FOR PATIENT.
[2020-11-25 08:09] VITALS: BP 156/77
[2020-11-25 10:13] LABS: BASOPHIL % 0.5 % (0.2-1.3); PLATELET COUNT 383 x10^3mcL (179-408); RED CELL DISTRIBUTION WIDTH 13.1 % (12.3-17.7)
[2020-11-25 11:32] VITALS: BP 141/66
--- NOTE | 2020-11-25 12:01 | NUR ---
SPOKE WITH PATIENT REGARDING POSSIBLE REMOVAL OF FLEXI-SEAL. PATIENT REFUSES REMOVAL OF FLEXI-SEAL AT THIS TIME.
--- NOTE | 2020-11-25 12:17 | NUR ---
ATTEMPTED TO CONTACT DR. STEPHY HARPER TO DISCUSS PATIENT'S REFUSAL OF REMOVAL OF FLEXI-SEAL AT THIS TIME. UNABLE TO REACH DR. HARPER AT THIS TIME. LEFT MESSAGE.
--- NOTE | 2020-11-25 12:43 | NUR ---
SPOKE WITH DR. HARPER ON THE TELEPHONE REGARDING PATIENT'S CARE. PER DR. HARPER HE DOES NOT WANT THE PATIENT PLACED BACK ON LAXATIVES. I EXPLAINED TO DR. HARPER THAT THE PATIENT IS CURRENTLY REMAINING ON THE FLEXI-SEAL AT THIS TIME. REGARDLESS, DR. HARPER DOES NOT WANT PATIENT ON LAXATIVES AT THIS TIME. I EXPLAINED TO DR. HARPER THAT THE PATIENT HERSELF DOES NOT WANT THE REMOVAL OF THE FLEXI-SEAL AT THIS TIME AND THAT THE PATIENT STATES SHE DOES NOT FEEL WHEN SHE HAS A BOWEL MOVEMENT AND IS UNABLE TO DETERMINE WHEN SHE HAS A BOWEL MOVEMENT. THEREFORE, WITHOUT THE FLEXI-SEAL IN PLACE AND FUNCTIONING PATIENT IS INCONTINENT OF BOWEL AND IS AT RISK FOR INFECTION. DR. HARPER AWARE, STATES HE WANTS TO SPEAK TO CHARGE NURSE. CHARGE NURSE CURRENTLY ON LUNCH. WILL INFORM CHARGE THAT DR. HARPER WANTS TO SPEAK WITH HER.
--- NOTE | 2020-11-25 13:30 | NUR ---
CHARGE NURSE INFORMED OF PHONE CALL WITH DR. STEPHY HARPER REGARDING PATIENT.
--- NOTE | 2020-11-25 15:00 | NUR ---
PATIENT STARTED ON IV VANCO PER PROVIDER ORDER.
[2020-11-25 15:45] VITALS: BP 146/75
--- NOTE | 2020-11-25 16:58 | NUR ---
FLEXI-SEAL REMOVED PER DR. STEPHY HARPER ORDER. DR. HARPER DISCONTINUED LAXATIVES AND WANTS PATIENT TO BEGIN AMBULATING TO THE BATHROOM TO HAVE BOWEL MOVEMENTS. KERLEX FROM WOUND REMOVED AND SIGNIFICANT PURULENT PUS NOTED AT SITE OF WOUND. WOUND PACKED WITH NEW KERLEX AND COVERED WITH OPTIFOAM DRESSING. BEDSIDE COMMODE PLACED IN PATIENT'S ROOM.
[2020-11-25 20:05] VITALS: BP 146/72
--- NOTE | 2020-11-25 20:10 | NUR ---
PT RECIEVED FROM DAY SHIFT. PT RESTING IN BED A&O X4. PT ON TELE 67 PRESENTING WITH NSR. STRONG PULSES, +1 EDEMA OF BUE AND BLUE. PT HAS CLEAR LUNG SOUNDS ON ROOM AIR, OXYGEN SATURATION 98%. ACTIVE BOEL SOUNDS X4, PT HAS BSC AND RUTH CATHETER IN PLACE. PT HAS GENERALIZED WEAKNESS BUIT IS AMBULATORY AND HAS PT 5X A WEEK. PT HAS WOUND OF THE LEFT BUTTOCK 16CM X 6CM UNDERMINING PRESENT. PT C/O OF PAIN. IV ON THE RFA 22 GUAGE. BED ON THE LOWEST LEVEL, CALL LIGHT WITHIN REACH, BED RAILS UP X2. WILL CONTINUE TO MONITOR.
--- NOTE | 2020-11-25 21:43 | NUR ---
PT GIVEN TORADOL IVP PER MD ORDER FOR C/O OF PAIN. MEDICATION EFFECTIVE NO SIDE EFFECTS NOTED AT THIS TIME. BED ON LOWEST LEVEL, CALL LIGHT WITHIN REACH, BED RAILS UP X2. WILL CONTINUE TO MONITOR.
[2020-11-26 05:35] VITALS: BP 146/76
--- NOTE | 2020-11-26 06:22 | NUR ---
NURSING CO-SIGN THE DOCUMENTATION ENTERED BY THE IP HAS BEEN REVIEWED. REVIEWED/CO-SIGNED BY: May Poe DOCUMENTATION DONE BY: CARMELA ROBLES
--- NOTE | 2020-11-26 06:38 | NUR ---
PT RESTING IN BED A&O X4. PT C/O OF PAIN. PT ON ROOM AIR, OXYGEN SATURATION 98%. BED ON LOWEST LEVEL, CALL LIGHT WITHIN REACH, BED RAILS UP X2. WILL ENDORSE TO ONCOMING SHIFT.
--- NOTE | 2020-11-26 06:40 | NUR ---
SPOKE WITH BLOOD BANK, THERE IS NO O POS PLASAMA AT THIS TIME. WILL CONTINUE TO CHECK FOR STOCK. WILL CONTINUE TO MONITOR PATIENT AND OFFER SUPPORT.
--- NOTE | 2020-11-26 07:05 | NUR ---
RECIEVED REPORT FROM NOC NURSE. PATIENT CURRENTLY REMAINS ON ISOLATION PRECAUTIONS DUE TO POSITIVE COVID 19 STATUS. PATIENT REMAINS ON ROOM AIR AT THIS TIME, OXYGEN SATURATION ON ROOM AIR AT 97%. PER NOC NURSE, PATIENT DID NOT HAVE BOWEL MOVEMENT AT NIGHT. STILL NEED TO OBTAIN URINE CULTURE FROM PATIENT WELL STOOL CULTURE. PATIENT CURRENTLY SALINE LOCKED, BUT RECIEVES SCHEDULED ANTIBIOTICS THROUGHOUT SHIFT. SAFETY PRECAUTIONS IN PLACE. CALL LIGHT WITHIN REACH. WILL CONTINUE TO PROVIDE CARE FOR PATIENT.
[2020-11-26 08:01] LABS: BASOPHIL % 0.6 % (0.2-1.3); PLATELET COUNT 376 x10^3mcL (179-408); RED CELL DISTRIBUTION WIDTH 12.9 % (12.3-17.7)
[2020-11-26 09:04] LABS: CALCIUM 8.4 mg/dL (8.5-10.1); CREATININE SERUM 1.8 mg/dL (0.6-1.0); POTASSIUM SERUM 3.4 mmol/L (3.5-5.1)
[2020-11-26 09:18] VITALS: BP 154/75
[2020-11-26 12:28] VITALS: BP 143/71
--- NOTE | 2020-11-26 13:11 | NUR ---
WBC's TRENDING DOWN.
--- NOTE | 2020-11-26 13:11 | NUR ---
URINE CX OBTAINED PER PHYSICIAN ORDER.
--- NOTE | 2020-11-26 14:21 | NUR ---
TORADOL DISCONTINUED BY DR. SANCHEZ. PER DR. SANCHEZ PATIENT IS TO AVOID NSAIDS. NEW PAIN MEDICATION OBTAINED FROM [employer].
--- NOTE | 2020-11-26 17:20 | NUR ---
PATIENT CURRENTLY AWAKE ALERT AND ORIENTED X 4 AND IN BED. PATIENT ON ISOLATION PRECAUTIONS DUE TO POSITIVE COVID 19 STATUS. WBC COUNT TRENDING DOWN. RUTH IN PLACE DRAINING YELLOW URINE TO GRAVITY. URINE APPEARS TO BE MORE CLEAR. URINE CX OBTAINED ON SHIFT TODAY. PATIENT ON ANTIBIOTICS AT THIS TIME. CONVALASCENT PLASMA STILL NOT AVAILABLE FOR PATIENT ACCORDING TO BLOOD BANK. POTASSIUM 3.4 REPLACED WITH 20 MEQ PO POTASSIUM PER FOOD AND BEVERAGE CASHIER ORDER. TORADOL D/C BY DR. SANCHEZ PATIENT IS TO AVOID NSAIDS. FOOD AND BEVERAGE CASHIER ORDERED TRAMADOL FOR PATIENT PRN. PATIENT REPORTS PAIN AT SITE OF WOUND. WOUND CURRENTLY CDI PACKED WITH KERLEX AND COVERED WITH OPTIFOAM. PATIENT ALSO CURRENTLY PENDING PT EVALUATION. SAFETY PRECAUTIONS IN PLACE. CALL LIGHT WITHIN REACH. WILL REPORT ALL FURTHER CARE TO THE NOC NURSE.
[2020-11-26 17:55] VITALS: BP 159/78
--- NOTE | 2020-11-26 20:11 | NUR ---
PT RECIEVED FROM DAY SHIFT. A&OX4. PT ON TELE 62 PRESENTING WITH NSR. PULSES PALPABLE BUE AND BLE, EDEMA BLE. CLEAR BREATH SOUNDS ON ROOM AIR OXYGEN SATURATION 97%. PT HAS WOUND OF LEFT BUTTOCK WITH UNDERMINING 16CM X 6CM COVERED WITH DRESSING, RUTH CATH IN PLACE. PT HAS GENERALIZED WEAKNESS AND IS BED BOUND. NO C/O OR SIGNS OF PAIN, DISTRESS, OR DISCOMFORT. IV ON THE RFA 22 GUAGE PATENT AND INTACT. BED ON LOWEST LEVEL CALL LIGHT WITHIN REACH, BED RAILS UP X2. WILL CONTINUE TO MONITOR.
[2020-11-26 21:43] VITALS: BP 140/84
--- NOTE | 2020-11-27 02:00 | NUR ---
PT C/O N/V, PT GIVEN PHENERGAN PER MD ORDER, MEDICATION EFFECTIVE, NO SIDE EFFECTS NOTED. NO C/O OR SIGNS OF PAIN, DISTRESS, OR DISCOMFORT. BED ON LOWEST LEVEL, CALL LIGHT WITHIN REACH, BED RAILS UP X2. WILL CONTINUE TO MONITOR.
[2020-11-27 06:00] VITALS: BP 151/79
--- NOTE | 2020-11-27 06:30 | NUR ---
PT RESTING IN BED A&O X4. PT ON ROOM AIR, OXYGEN SAT 94%. PT COMPLIANT WITH TURNING SELF. NO C/O N/V. NO C/O OR SIGNS OF PAIN, DISTRESS, OR DISCOMFORT. WILL ENDORSE TO ONCOMING SHIFT.
--- NOTE | 2020-11-27 08:00 | NUR ---
PT RECEIVED FROM PM NURSE. PT IS AWAKE AND RESTING COMFORTABLY AT THIS TIME. NO ACUTE DISTRESS NOTED OR SOB NOTED. PT IS A/OX4. ABLE TO MAKE NEEDS KNOWN. DENIES PALMER/DIZZINESS. LUNG SOUNDS CTA. BREATHING E/U ON RA. TELE #67. DENIES CHEST PAIN OR PALPITATIONS. PULSES PALPABLE. EDEMA +1 NOTED TO BUE/BLE. ACTIVE BSX4. ABD SOFT AND NON DISTENDED. C/O OF NAUSEA. WILL MEDICATE PER EMAR. F/C IN PLACE DRAINING YELLOW URINE VIA GRAVITY. NO DEPENDENT KINK NOTED. DRESSING TO LEFT GLUTEAL OPEN WOUND. CDI. WILL CHANGE WHEN SOILED. IV 22G TO RFA. SL. FLUSHES WITH NO DIFFICULTY. BED AT LOWEST POSITON. CALL BUTTON WITHIN REACH. WILL CONTINUE TO MONITOR.
[2020-11-27 08:49] VITALS: BP 143/75
[2020-11-27 09:29] LABS: BASOPHIL % 0.8 % (0.2-1.3); RED CELL DISTRIBUTION WIDTH 12.9 % (12.3-17.7)
[2020-11-27 10:08] LABS: CALCIUM 8.3 mg/dL (8.5-10.1); CREATININE SERUM 1.6 mg/dL (0.6-1.0); POTASSIUM SERUM 3.6 mmol/L (3.5-5.1)
[2020-11-27 10:23] LABS: PLATELET COUNT 420 x10^3mcL (179-408)
[2020-11-27 12:09] VITALS: BP 115/73
[2020-11-27 17:18] VITALS: BP 139/60
--- NOTE | 2020-11-27 18:56 | NUR ---
DRESSING CHANGED PRN. WET TO DRY DRESSING APPLIED. OPTIFOAM AND TAPE TO HOLD IT IN PLACE. PT TOLERATED PROCEDURE WELL. WILL CONTINUE TO MONITOR.
--- NOTE | 2020-11-27 19:00 | NUR ---
NO ACUTE DISTRESS NOTED DURING SHIFT. WILL ENDORSE CARE TO PM SHIFT FOR CONTINUITY OF CARE.
[2020-11-27 20:36] VITALS: BP 121/64
--- NOTE | 2020-11-28 00:49 | NUR ---
PATIENT IN BED,AWAKE,ALERT,AND ORIENTED X 4.GUATEMALAN SPEAKING . SKIN WARM AND DRY TO TOUCH.ON ROOM AIR WITH O2 SAT. 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 F/C PATENT AND DRAINING YELLOW COLORED URINE,NO HEMATURIA,NO DYSURIA. HAD EPIOSDE OF C/O BODY PAIN AND FEELING NAUSEATED.MEDS GIVEN ORDERED WITH GOOD RELIEF.CALL LIGHT WITHIN REACH.
[2020-11-28 04:51] VITALS: BP 135/73
--- NOTE | 2020-11-28 07:40 | NUR ---
RECEIVED PT FROM PM NURSE. PT IS AWAKE AND IN NO ACUTE DISTRESS AT THIS TIME. PT IS A/OX4. ABLE TO MAKE NEEDS KNOWN. DENIES PALMER/DIZZINESS. LUNG SOUNDS CTA. BREATHING E/U ON RA. TELE #67. DENIES CHEST PAIN. PALPABLE PULSES. EDEMA +1 NOTED TO BUE AND BLE. ACTIVE BSX4. ABD SOFT AND ROUND. DENIES N/V/D. F/C IN PLACE DRAINING YELLOW URINE VIA GRAVITY. BEDREST AT THIS TIME. L GLUTEAL WOUND PACKED WITH WET TO DRY DRESSING WITH OPTIFOAM TO COVER. WILL CHANGE WHEN SOILED AND NEEDED. C/O PAIN TO HER BUTTOCK. WILL ADMINSTER PAIN MED PER EMAR. IV 22G TO RFA. SL. SITE WNL. BED AT LOWEST POSITION. CALL BUTTON WITHIN REACH. WILL CONTINUE TO MONITOR.
[2020-11-28 08:29] VITALS: BP 138/75
[2020-11-28 10:13] LABS: CALCIUM 8.1 mg/dL (8.5-10.1); CARBON DIOXIDE 26.9 mmol/L (21-32); CREATININE SERUM 1.7 mg/dL (0.6-1.0); POTASSIUM SERUM 3.7 mmol/L (3.5-5.1)
[2020-11-28] MEDS ORDERED: FLA500I IV (11:11)
[2020-11-28] MEDS ORDERED: VANCOMYCIN1 GM/2001 IV (11:12)
[2020-11-28] MEDS ORDERED: CEFEPIME1 GM/50 ML IV (11:12)
[2020-11-28] MEDS ORDERED: LANTI SQ (11:13)
[2020-11-28 12:11] VITALS: BP 138/57
--- NOTE | 2020-11-28 12:36 | NUR ---
WOUND CARE EVALUATION NOTE: WOUND ASSESSMENT DONE TO THIS 60 Y/O FEMALE PT.S/P DEBRIDEMENT TO PERIANAL PT. IS AAX4, ABLE TO FOLLOW SIMPLE DIRECTIONS AND TURN SIDE TO SIDE. PT. IS ANXIOUS ABOUT WOUND CARE AND EXPRESS THAT SHE WOULD LIKE TO GO TO SNF FOR CONTINUE WOUND CARE. POC DISCUSSED WITH PRIMARY RN AND PT. WOUND CARE TEACHING EXPLAIN TO PT. ALL QUESTIONS ANSWERED AND PT. VERBALIZES UNDERSTANDING. INTEGUMENTARY: -PERIANAL SURGICAL WOUND: [id number], UNDERMINING TO 9 O'CLOCK DIRECTION 4 CM, WOUND EDGE FLAT, WOUND BED WITH 100% GRANULATING TISSUE, MODERATE SEROSANGENOUS DRAINAGE, NO ODOR, NARAYAN WOUND SKIN MOISTURE ASSOCIATED DERMATITIS (MAD), PAIN 5/10. RECOMMENDATIONS: -PLEASE DO NO USE OPTIFOAM DRESSING TO SURGICAL WOUND -CLEANSE SURGICAL WOUND TO PERIANAL WITH NS, APPLY HYDROGEL TO WOUND BED AND UNDERMINING AREA, PACK WITH KERLIX ROLL, APPLY THIN LAYERS OF Z GUARD TO NARAYAN WOUND MAD SKIN, COVER WITH ABD PAD DRESSING, SECURE WITH TAPE QD AND PRN IF SOILING -ASSESS AND MONITOR DRESSING CONDITION AFTER EACH VOID AND BOWEL MOVEMENT -PRESSURE REDISTRIBUTION BY PLACING PILLOWS AND OFFLOADING SACRALCOCCYX -KEEP SKIN CLEAN AND DRY AT ALL TIMES. PLEASE CONTACT WOUND CARE NURSE FOR ANY CHANGE OF WOUND CONDITION
--- NOTE | 2020-11-28 14:55 | NUR ---
Follow-up Nutrition Assessment: Angella Black 254T-A Dx: Severe sepsis, right buttock abscess and hypokalemia PMHx: DM 2 Labs: (11/27) WBC: 16.6, H/H: 8.7/27%, Creatinine: 1.7, Glu: 130, all other pertinent labs wnl (11/23) Cr:2.1H, Ca:8.1L, WBC:19.1H. H/H:9.3/28L, labs still pending for 11/24 Meds: Humulin, Lantus, Phenergen, Reglan, Tylenol, Zofran, started on Flagyl, Flagyl and Cefepime Diet: CCHO, Glucerna tid with meals, po intakes poor upon admission however after pt was NPO po intakes have improved to 50-100% with avg 69% Weights: 82.752kg (11/14), no new weights documented by nursing Edema: 1+ edema to BUE and BLE Last BM: 11/25, pt reporting nausea Skin: L gluteal wound noted (received debridement upon last assessment), Edd: [address], per RN note, pt with good appetite. Unable to reach patient case monitor. Current RD note (11/28) s/p surgical debridement, pt continues on ABX, it was recommended by surgery to discontinue laxative use for firmer stools Estimated Nutritional Needs Based on adjusted body weight 63kg Energy: 1890-2205kcal/day (30-35kcal/kg for sepsis and wound healing) Protein: 78-94g/day (1.2-1.5g/kg for sepsis and wound healing) Fluid: 1890-2205mL/day (1 mL/kcal) Nutrition Diagnosis: 1. Increased protein/energy needs related to critical illness and altered skin integrity as evidenced by pt with sepsis and wound to buttock (ongoing) 2. Intervention: 1. Continue CCHO diet as tolerated. Current intakes of 69% plus supplement intakes meet 100% of estimated needs. 2. Continue Glucerna TID to provide an additional 660kcal and 30g protein. Monitor/Evaluate: Goal: Consume at least 75% of estimated nutritional needs and wound healing Monitor: PO intake, Labs, GI function, Body weight, skin integrity F/U in 2-3 days as high risk 11/30-.
[2020-11-28 15:25] LABS: BASOPHIL % 0.6 % (0.2-1.3); RED CELL DISTRIBUTION WIDTH 13.4 % (12.3-17.7)
[2020-11-28 15:44] LABS: PLATELET COUNT 406 x10^3mcL (179-408)
[2020-11-28 15:59] VITALS: BP 136/60
[2020-11-28 16:01] VITALS: BP 136/60
--- NOTE | 2020-11-28 17:03 | NUR ---
REPORT GIVEN TO BUNNY FROM [facility]. PT WILL BE GOING TO ROOM 117A. DISCHARGE PAPERWORK IN PATIENT'S ENVELOPE.
== END 2020-11-28 19:01 | DRG 853 ==
LOC: ED 14:21 → IC 22:29 → DU 22:29
PROVIDERS: Internal Medicine; Specialist; Surgery; ADMIT Family Medicine; ATTEND Family Medicine
PROC: 0JBB0ZZ Excision of Perineum Subcutaneous Tissue and Fascia, Open Approach (ICD-10-PCS; principal; 2020-11-23 14:00)
DX: A41.89 Other specified sepsis (principal); M72.6 Necrotizing fasciitis; E43 Unspecified severe protein-calorie malnutrition; U07.1 COVID-19; N17.0 Acute kidney failure with tubular necrosis; E87.1 Hypo-osmolality and hyponatremia; N39.0 Urinary tract infection, site not specified; K61.0 Anal abscess; E11.9 Type 2 diabetes mellitus without complications; I10 Essential (primary) hypertension; D47.3 Essential (hemorrhagic) thrombocythemia; E78.1 Pure hyperglyceridemia; N76.89 Other specified inflammation of vagina and vulva; D72.829 Elevated white blood cell count, unspecified; E87.6 Hypokalemia; D63.8 Anemia in other chronic diseases classified elsewhere; K80.20 Calculus of gallbladder without cholecystitis without obstruction; B96.20 Unspecified Escherichia coli [E. coli] as the cause of diseases classified elsewhere; Z68.20 Body mass index [BMI] 20.0-20.9, adult; Z79.899 Other long term (current) drug therapy; Z79.891 Long term (current) use of opiate analgesic; Z79.01 Long term (current) use of anticoagulants
CPT/HCPCS: 36600; 78226; 82962; 83880; 84439; 97110-GP; 97530-GP; A9537; G0378; J0330; J0692; J1170; J1815; J1885; J2270; J2405; J2543; J2550; J2710; J2765; J3010; J3370; J3480; J3490; J7030; J8597; Q0162; Q9967; U0003